=== PATIENT | female | born 1985 | race African-American/Black ===

== ENCOUNTER 2018-12-07 10:34 | Emergency (ER) | payer OTHER ==
[~2018-12-07] VITALS: Ht 165.1 cm; Wt 73.0 kg
[2018-12-07] MEDS ORDERED: IBUPROFEN 600MG TABLET PO ONE (11:30)
[2018-12-07] MEDS ORDERED: ONDANSETRON 4MG ODT PO ONE (13:15)
[2018-12-07] MEDS ORDERED: HYDROCODONE/ACETAMINOPHEN 5/325MG TABLET PO ONE (13:15)
[2018-12-07 15:12] VITALS: BP 115/72
== END 2018-12-07 15:13 | disposition home or self-care (01) ==
LOC: ER 10:34
DX: S09.8XXA Other specified injuries of head, initial encounter (principal); M54.5 Low back pain; V43.52XA Car driver injured in collision with other type car in traffic accident, initial encounter; Y93.89 Activity, other specified; Y92.89 Other specified places as the place of occurrence of the external cause; Y99.8 Other external cause status
CPT/HCPCS: 70450; 72100; 81025; 99284; Q0162